=== PATIENT | male | born 2000 | race Caucasian/White ===

== ENCOUNTER 2025-09-02 13:35 | Emergency (ER) | payer SELFPAY ==
[2025-09-02 13:39] VITALS: BP 137/98
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
== END 2025-09-02 17:57 | disposition home or self-care (01) ==
LOC: EMR 13:35
PROVIDERS: EMERGENCY PHYSICIAN Emergency Medicine; FAMILY PHYSICIAN Internal Medicine
DX: S09.90XA Unspecified injury of head, initial encounter (principal); S00.81XA Abrasion of other part of head, initial encounter; S50.812A Abrasion of left forearm, initial encounter; V28.49XA Other motorcycle driver injured in noncollision transport accident in traffic accident, initial encounter; Y92.410 Unspecified street and highway as the place of occurrence of the external cause
CPT/HCPCS: 99284; 70450; 72125